=== PATIENT | male | born 1985 | race Caucasian/White ===

== ENCOUNTER 2018-09-20 20:10 | Emergency (ER) | payer SELFPAY ==
[~2018-09-20] VITALS: Ht 172.7 cm; Wt 97.1 kg
[2018-09-20 20:21] VITALS: Ht 172.7 cm; Wt 97.1 kg
[2018-09-20 21:59] VITALS: BP 146/87
== END 2018-09-20 21:59 | disposition home or self-care (01) ==
LOC: ED 20:10
DX: R10.13 Epigastric pain (principal); R07.89 Other chest pain